=== PATIENT | male | born 1970 | race Caucasian/White ===

== ENCOUNTER 2018-02-09 19:49 | Emergency (ER) | payer SELFPAY ==
[2018-02-09] MEDS: ORPHENADRINE CITRATE 60 MG/2ML IM ONE (21:06)
[2018-02-09] MEDS: traMADol HCL 50 MG TABLET PO ONE (21:07)
--- NOTE | 2018-02-09 21:40 | ED Physician Documentation ---
Lower Extremity Injury - HISTORIAN Historian: patient - HPI Stated Complaint: left leg pain Chief Complaint: Lower Extremity Injury Additional Information: Left lower leg pain since he was moving a deep freeze this evening. Left foot was in dorsiflexion and he was pushing off to lift the freezer when he felt pain in the mid lateral lower leg. He has kept his foot in extreme plantar flexion to decrease pain. He is concerned about Achilles tendon rupture. Contreras sapplied ice to the area. No other treatment attempted. No other associated signs. Onset: minutes - ROS CONST: no problems - PAST HX Past History: other (hypothyroidism) - SOCIAL HX Smoking History: non-smoker - FAMILY HX Family History: no significant history - REVIEWED ASSESSMENTS Nursing Assessment Reviewed: Yes Vitals Reviewed: Yes Progress - Progress Progress: Concern that he has peroneus tendon rupture or muscle tear. Spoke with Dr. Zaragoza of [facility] in [place] at 2140. He suggested ankle films and follow up on Monday, February 12. Ankle films, neg per my read. (pt in great hurry as there are small children and a assistant accounting manager waiting). ED Results Lab/Radiology - Orders Orders: ED Orders Category Date Time Status Apply ice to affected area Q2 Care 02/09/18 20:32 Active ANKLE 3 VIEWS OR MORE [RAD] Stat Exams 02/09/18 Ordered HYDROcodone /APAP 5/325 [[place] 5/325] Med 02/09/18 21:35 Discontinued 2 each PO NOW ONE Orphenadrine Citrate [Norflex] Med 02/09/18 20:32 Discontinued 60 mg IM NOW ONE traMADol HCL [Ultram] Med 02/09/18 20:37 Discontinued 100 mg PO NOW ONE Lower Extremities Injury Phy - Physical Exam General Appearance: alert, moderate distress Hips: bilateral hip: normal inspection, no evidence of injury Legs: right: no evidence of injury, bilateral: soft tissue tenderness (just proximal to lateral mid left leg and swelling) Knees: bilateral: normal inspection, no evidence of injury Ankle: right: normal inspection, normal range of motion, other (held in full plantar flexion. DP 2+), left: limited range of motion (dorsflexion increases pain) Foot: bilateral foot: normal inspection Neuro/Vascular/Tendon: no vascular compromise, motor nml, sensation nml Head/ENT: nml inspection Neck/Back: nml inspection Resp/CVS: no resp. distress Discharge Clincal Impression: Sprain of leg Referrals: Primary Doctor,No [Primary Care Provider] - 2 Days Additional Instructions: Call [facility] on Monday morning and make an appointment to be seen in the next 3-4 days. Tell them you have a possible ruptured tendon in your leg. I spoke with Dr. Mila march. Apply ice to the sore area of your leg for 30 minutes of each hour you are awake until you see orthopedics. Keep the left leg elevated as much as possible. If your pain cannot be controlled or your condition worsens, got to the ER at home. Condition: Fair Disposition: 01 HOME, SELF-CARE Decision to Admit: NO Decision Time: 21:55
[2018-02-09] MEDS: HYDROcodone /APAP 5/325 1 EACH TABLET PO ONE (21:43)
[2018-02-10 00:34] VITALS: BP 153/92
--- NOTE | 2018-02-10 05:43 | Diagnostic Imaging Report ---
[facility] [address] [facility].[address] [id number] Report Submission Date: Feb 09, 2018 10:03:47 PM CDT Patient Study Name: ISRRAEL EDWARDS Date: Feb 09, 2018 9:38:35 PM CDT Modality Type: DX Gender: M Description: LOWER EXTREMITY : 70 Institution: [facility] Physician: WILSON GLYNN - PALMER 3 views left ankle Clinical history: PT STATES MEDIAL PAIN OF ANKLE AND LOWER LEG TODAY Findings: Examination of the left ankle in AP, lateral and oblique views fails to demonstrate evidence of fracture, dislocation or other bone or joint pathology. Electronically signed on Feb 09, 2018 10:03:47 PM CDT by: Slava BALDERAS
== END 2018-02-09 21:58 | disposition home or self-care (01) ==
LOC: ED 19:49
DX: S89.92XA Unspecified injury of left lower leg, initial encounter (principal); W23.1XXA Caught, crushed, jammed, or pinched between stationary objects, initial encounter; Y92.9 Unspecified place or not applicable; Y93.9 Activity, unspecified; Y99.9 Unspecified external cause status
CPT/HCPCS: 73610; A9270; J2360; 96372; 99283